=== PATIENT | male | born 2000 | race Two or more races ===

== ENCOUNTER 2023-12-31 00:58 | Emergency (ER) | payer BC ==
[2023-12-31] MEDS ORDERED: predniSONE 20 MG TAB ONE (01:12)
[2023-12-31] MEDS ORDERED: Albuterol 2.5 MG (3 mL) NEB ONE (01:16)
[2023-12-31] MEDS ORDERED: Ipratropium Bromide 2.5 ml Neb ONE (01:17)
[2023-12-31] MEDS ORDERED: Ondansetron ODT 4 MG TAB ONE (02:07)
[2023-12-31 02:14] LABS: Troponin I 0.017 ng/mL (< 0.028)
== END 2023-12-31 04:18 | disposition home or self-care (01) ==
LOC: CSHERS 00:58
DX: J45.901 Unspecified asthma with (acute) exacerbation (principal); F12.10 Cannabis abuse, uncomplicated; Z75.3 Unavailability and inaccessibility of health-care facilities
CPT/HCPCS: 36415; 71046; 84484; 93005; J7512; J7611; J7644; Q0162